=== PATIENT | male | born 1985 | race Caucasian/White ===

== ENCOUNTER 2024-10-30 09:26 | Day surgery (SDC) | payer MEDICAID ==
[2024-10-30] VITALS (9 sets, daily range): BP systolic 93–132; BP diastolic 55–75; PULSE 52–71; RESP 12–16; TEMP 98.6; O2SAT 97–99
[~2024-10-30] VITALS: Ht 180.3 cm; Wt 66.1 kg
[2024-10-30] MEDS: ceFAZolin 2gm/dext,iso 50mL 50 ML IV ONE (05:30)
[~2024-10-30 09:26] MED LIST: NO HOME MEDS
[2024-10-30] MEDS: famotidine 20mg tablet PO ONE (10:26)
[2024-10-30] MEDS: ringers solution, lacted 1,000 ML IV SCH (10:26)
--- NOTE | 2024-10-30 10:30 | ELECTROCARDIOGRAPH REPORT ---
[facility] Test Date: 2024-10-30 Test Time: 10:28:58 Pat Name: FATOUMATA MUHAMMAD Department: [facility] Patient ID: [id number] Room: Gender: M Intrusion Analyst: CATHERINE : 1985 Requested By: DOMENIC LIM Order Number: [id number] Reading MD: Dr. HUI Feldman Measurements Intervals [place] Rate: 76 P: 84 CT: 145 QRS: 83 QRSD: 100 T: 70 QT: 385 QTc: 433 Interpretive Statements Sinus rhythm Probable left atrial enlargement Anteroseptal infarct, old Electronically Signed On 10-30-2024 17:57:[address] HUI Feldman Please click the below link to view image of tracing.
[2024-10-30] MEDS ORDERED: BUPIVAcaine/PF 2.5mg/ml (0.25%) 10ml vial ONE (11:02)
[2024-10-30 11:08] LABS: BASOPHILS % (AUTO) 0.8 % (0-1); EOSINOPHILS # (AUTO) 0.4 X10'3 (0-0.9); EOSINOPHILS % (AUTO) 9.2 % (0-6); LYMPHOCYTES # (AUTO) 1.6 X10'3 (1.1-4.8); LYMPHOCYTES % (AUTO) 33.4 % (21-51); MEAN CORPUSCULAR HEMOGLOBIN 29.2 PG (27.0-31.0); MEAN CORPUSCULAR HGB CONC 35.3 g/dL (33.0-36.5); MEAN CORPUSCULAR VOLUME 82.8 FL (78-98); MEAN PLATELET VOLUME 8.6 FL (7.4-10.4); MONOCYTES # (AUTO) 0.3 X10'3 (0-0.9); NEUTROPHILS # (AUTO) 2.4 X10'3 (1.8-7.7); NEUTROPHILS % (AUTO) 49.6 % (42-75); PRE OP HEMATOCRIT 41.3 % (42.0-52.0); PRE OP HEMOGLOBIN 14.6 g/dL (14.0-17.9); PRE OP PLATELET COUNT 245 X10'3 (140-440); PRE OP WHITE BLOOD COUNT 4.8 10'3 (4.8-10.8); RED BLOOD COUNT 4.99 X10'6 (4.70-6.10); RED CELL DISTRIBUTION WIDTH 13.1 % (11.5-14.5)
[2024-10-30] MEDS ORDERED: propofol inj 20 ML IV ONE (11:14)
[2024-10-30] MEDS ORDERED: fentaNYL/PF 50MCG/1 ML 2ML syringe ONE (11:14)
[2024-10-30] MEDS ORDERED: midazolam 1 mg/ML 2ml injection ONE (11:14)
[2024-10-30 11:21] LABS: ALBUMIN 3.8 G/DL (3.4-5.0); ALKALINE PHOSPHATASE 127 IU/L (46-116); BLOOD UREA NITROGEN 11 MG/DL (7-18); BUN/CREATININE RATIO 12.1 (10.0-20.0); CALCIUM 9.4 MG/DL (8.5-10.1); CHLORIDE 102 MMOL/L (99-107); CREATININE 0.91 MG/DL (0.60-1.10); PRE OP ALT 52 U/L (30-65); PRE OP ANION GAP 8 (8-16); PRE OP AST 36 U/L (10-37); PRE OP BILIRUB, TOTAL 0.8 MG/DL (0.0-1.0); PRE OP GLUCOSE 100 MG/DL (70-104); PRE OP POTASSIUM 3.7 MMOL/L (3.4-5.1); PRE OP SODIUM 138 MMOL/L (135-145); TOTAL CARBON DIOXIDE 27.9 MMOL/L (24-32); TOTAL PROTEIN 7.7 G/DL (6.4-8.2); eCRCL 101 ML/MIN; eGFR > 90 ML/MIN
[2024-10-30] MEDS ORDERED: sevoflurane 250ml liquid IH ONE (11:30)
[2024-10-30] MEDS ORDERED: ROPIVAcaine 0.5% (5mg/ml) 30ml vial ONE (12:14)
[2024-10-30] MEDS ORDERED: dexamethasone sod phosphate 4mg/ml inj. ONE (12:14)
[2024-10-30] MEDS ORDERED: ondansetron/PF 4mg/2ml inj ONE (12:14)
--- NOTE | 2024-10-30 16:21 | OPERATIVE REPORT ---
Operative Report Providers to ~ Date of Procedure: Oct 30, 2024 Pre-Operative Diagnosis: Intra-articular right distal radius fracture Post-Operative Diagnosis Intra-articular right distal radius fracture, Benjamin type, closed Procedure Performed Open reduction internal fixation right distal radius fracture Surgeon: Chaparro Strickland MD Forensic Toxicologist None Anesthesiologist: Harpreet Serna Type of Anesthesia: General Findings: Prosthetics\Implants used: bone bridge distal radius locking plate and screws Estimated Blood Loss: none Specimen Removed: None Description of Procedure: The patient is a 39-year-old man who several weeks ago fell off his motorized skateboard fracturing his wrist. He eventually presented with the injury. Because of some scheduling the lace surgery was delayed several weeks. X-rays showed a displaced volar Benjamin type intra-articular distal radius fracture with severe displacement. Surgery is indicated to restore function. Risks and benefits were discussed with the patient. He understands that some of the risks include infection, bleeding, nerve or vessel damage and failure to heal. He also understands the importance of maintaining the splint as directed. He was given the anesthetic in the operating room and the arm was prepped and draped in usual manner with a tourniquet high. An incision was made over the flexor carpi radialis and the interval was between it and the radial artery. The pronator quadratus was elevated off the distal radius. Fracture fragments was starting to heal and was very difficult to manipulate back into proper position. An elevator was used subchondrally to elevate the depressed articular fragments. Eventually under fluoro guidance we are able to restore the normal articular anatomy and the bone bridge stainless distal radius standard plate was used for fixation. It was affixed proximally 1st under fluoro and then four distal interlock screws were placed in the subchondral bone. This restored the anatomic configuration of the distal radius and the screws were checked to make sure there was no joint penetration. The fracture was stable at this point and the incision was irrigated and closed in layers. A sterile dressing was then applied along with anesthetic for postop pain control. A splint was applied and the tourniquet was released. The hand perfused well and he was awakened and taken to the recovery room in stable condition. CHAPARRO STRICKLAND Jr., MD Oct 30, 2024 16:21
== END 2024-10-30 13:42 | disposition home or self-care (01) ==
LOC: PAS 09:26
PROVIDERS: ATTEND Orthopaedic Surgery Hand Surgery
DX: S52.571A Other intraarticular fracture of lower end of right radius, initial encounter for closed fracture (principal); S52.561A Barton's fracture of right radius, initial encounter for closed fracture; V00.131A Fall from skateboard, initial encounter; Y93.89 Activity, other specified; Y92.89 Other specified places as the place of occurrence of the external cause; Y99.8 Other external cause status; Z79.899 Other long term (current) drug therapy; G89.18 Other acute postprocedural pain; Z98.890 Other specified postprocedural states
CPT/HCPCS: 25609; 36415; 64417; 80053; 85025; 93005; A6222; C1713; J1100; J2250; J2405; J2704; J2795; J3010; J7030; J7120; Z7506; Z7508; Z7512; A4215; A4565; A4618; A6449; A7000; J3490